=== PATIENT | female | born 1995 | race American Indian/Alaskan Native ===

== ENCOUNTER 2024-03-09 03:08 | Inpatient (IN) | payer MEDICAID, OTHER ==
[~2024-03-09] VITALS: Ht 154.9 cm; Wt 110.8 kg
[~2024-03-09 03:08] MED LIST: FERR-7 PO; PANT40TA2 PO
[2024-03-09 04:13] LABS: Urine Bacteria None Seen /hpf (None Seen)
[2024-03-09 04:16] LABS: Basophils # (auto) 0.1 10 ^3/uL (0-0.2); Basophils % (auto) 0.3 % (0.0-2.0); Eosinophils # (auto) 0 10 ^3/uL (0-0.8); Hematocrit 45.3 % (36.0-46.0); Hemoglobin 15.3 g/dL (12.2-16.2); Lymphocytes # (auto) 2.3 10 ^3/uL (0.4-5.4); Lymphocytes % (auto) 13.5 % (10.0-50.0); Mean Corpuscular Hemoglobin 29.6 pg (28.0-32.0); Mean Corpuscular Hgb Conc. 33.9 g/dL (32.0-36.0); Mean Corpuscular Volume 87.2 fL (80.0-100.0); Monocytes # (auto) 1.6 10 ^3/uL (0-1.3); Monocytes % (auto) 9.2 % (0.0-12.0); Neutrophils # (auto) 13.1 10 ^3/uL (1.6-8.6); Nucleated Red Blood Cells % 0.1 %; Red Blood Cells 5.19 10^6/uL (4.0-5.20); Red Cell Distribution Width 13.9 % (11.8-14.3); White Blood Cell 17.1 10^3/uL (4.4-10.8)
[2024-03-09 04:24] LABS: Chloride 99 mmol/L (98-107); Potassium 2.8 mmol/L (3.5-5.1); Sodium 138 mmol/L (136-145)
[2024-03-09 04:25] LABS: Anion Gap 16 (5-15); Carbon Dioxide 23 mmol/L (20-30)
[2024-03-09 04:26] LABS: Calcium 10.9 mg/dL (8.7-10.4)
[2024-03-09 04:31] LABS: Blood Urea Nitrogen 24 mg/dL (9-23); Glucose 172 mg/dL (74-106)
[2024-03-09 04:37] LABS: Urine Blood 3+ /uL (Negative); Urine Clarity Clear (Clear); Urine Color Yellow (Yellow); Urine Hyaline Cast MANY /lpf (0 - 2); Urine Mucus FEW (None Seen); Urine Protein, UAD 4+ (Negative); Urine Specific Gravity 1.041 (1.001-1.035); Urine Urobilinogen Normal (Negative); Urine WBC 5 /hpf (0 - 5); Urine pH 6.5 (5.0-9.0)
[2024-03-09] MEDS: SODIUM CHLORIDE 0.9% 1,000 ML IV ONE ×3 (04:37→11:48)
[2024-03-09] MEDS: PANTOPRAZOLE 40 MG/10 ML VIAL INJ IV ONE (04:43)
[2024-03-09] MEDS: ONDANSETRON HCL 4 MG/2 ML VIAL IV ONE (04:43)
[2024-03-09] MEDS ORDERED: DEXTROSE (50%) 50ML SYRG IV PRN ×2 (05:30→12:45)
[2024-03-09 06:56] LABS: Base Excess -1.8 mmol/L (-2.0-2.0)
[2024-03-09 07:30] VITALS: PULSE 81; RESP 12; O2SAT 97
[2024-03-09] MEDS: INSULIN DRIP 100 UNIT/100ML 100 ML IV SCH (07:45)
[2024-03-09] MEDS: ACCU-CHEK COMFORT CURVE STRIP VI SCH (07:45)
[2024-03-09] MEDS: INSULIN LANTUS (GLARGINE) 1 /0.01ml (100units/ml) SC ONE (10:58)
[2024-03-09] MEDS ORDERED: ACETAMINOPHEN 325 MG TAB PO PRN (11:45)
[2024-03-09] MEDS ORDERED: DOCUSATE SOD 100 MG CAP PO PRN (11:45)
[2024-03-09] MEDS ORDERED: NITROGLYCERIN 0.4 MG SL TAB SL PRN (11:45)
[2024-03-09] MEDS ORDERED: MORPHINE SULFATE INJ 2 MG/ml SYRG IV PRN (11:45)
[2024-03-09] MEDS: cefTRIAXone 1GM/50ML D5W 50 ML IV ONE (11:48)
[2024-03-09] MEDS: SODIUM CHLORIDE 0.9% 1,000 ML IV SCH (11:48)
[2024-03-09] MEDS: amLODIPine BESYLATE 5 MG TAB PO ONE (11:49)
[2024-03-09] MEDS: ONDANSETRON HCL 4 MG/2 ML VIAL IV PRN (11:49)
[2024-03-09 11:59] LABS: Basophils # (auto) 0.1 10 ^3/uL (0-0.2); Basophils % (auto) 0.4 % (0.0-2.0); Eosinophils # (auto) 0 10 ^3/uL (0-0.8); Hematocrit 42.1 % (36.0-46.0); Hemoglobin 14.1 g/dL (12.2-16.2); Lymphocytes # (auto) 1.9 10 ^3/uL (0.4-5.4); Lymphocytes % (auto) 11.1 % (10.0-50.0); Mean Corpuscular Hemoglobin 28.9 pg (28.0-32.0); Mean Corpuscular Hgb Conc. 33.3 g/dL (32.0-36.0); Mean Corpuscular Volume 86.7 fL (80.0-100.0); Monocytes # (auto) 1.6 10 ^3/uL (0-1.3); Monocytes % (auto) 9.6 % (0.0-12.0); Neutrophils # (auto) 13.4 10 ^3/uL (1.6-8.6); Neutrophils % (auto) 78.9 % (37.0-80.0); Nucleated Red Blood Cells % 0.1 %; Red Blood Cells 4.86 10^6/uL (4.0-5.20); Red Cell Distribution Width 14.2 % (11.8-14.3)
[2024-03-09 12:04] LABS: Base Excess -0.5 mmol/L (-2.0-2.0)
[2024-03-09 12:09] LABS: Alanine Aminotransferase 11 U/L (7-40); Albumin 4.9 g/dL (3.2-4.8); Alkaline Phosphatase 77 U/L (46-116); Anion Gap 13 (5-15); Aspartate Aminotransferase 16 U/L (13-40); BUN/Creatinine Ratio 25.6 (10.0-20.0); Blood Urea Nitrogen 22 mg/dL (9-23); Calcium 9.9 mg/dL (8.5-10.1); Carbon Dioxide 23 mmol/L (20-30); Chloride 105 mmol/L (98-107); Glucose 92 mg/dL (74-106); Potassium 2.8 mmol/L (3.5-5.1); Sodium 141 mmol/L (136-145)
[2024-03-09 12:10] LABS: Bilirubin, Total 1.9 mg/dL (0.2-1.0); Total Protein 8.1 g/dL (5.7-8.2)
[2024-03-09] MEDS ORDERED: ACCU-CHEK COMFORT CURVE STRIP VI SCH (17:00)
[2024-03-09] MEDS ORDERED: InsuLIN REG 1unit/0.01ml Soln (100units/ml) SC SCH ×2 (17:00→22:00)
[2024-03-09] MEDS: POTASSIUM CHL 20MEQ/100ML 100 ML IV SCH (17:55)
[2024-03-09 19:30] VITALS: PULSE 78; RESP 14; O2SAT 98
[2024-03-10] MEDS: HYDROcodone-ACET 5/325MG TAB PO PRN (00:13)
[2024-03-10 06:03] LABS: Basophils # (auto) 0.1 10 ^3/uL (0-0.2); Basophils % (auto) 0.6 % (0.0-2.0); Eosinophils # (auto) 0 10 ^3/uL (0-0.8); Eosinophils % (auto) 0.3 % (0.0-7.0); Hematocrit 37.3 % (36.0-46.0); Hemoglobin 12.3 g/dL (12.2-16.2); Lymphocytes # (auto) 2.7 10 ^3/uL (0.4-5.4); Mean Corpuscular Hemoglobin 29.2 pg (28.0-32.0); Mean Corpuscular Volume 88.5 fL (80.0-100.0); Monocytes # (auto) 1.3 10 ^3/uL (0-1.3); Monocytes % (auto) 11.5 % (0.0-12.0); Neutrophils # (auto) 7.6 10 ^3/uL (1.6-8.6); Neutrophils % (auto) 64.6 % (37.0-80.0); Nucleated Red Blood Cells % 0.1 %; Red Blood Cells 4.22 10^6/uL (4.0-5.20); Red Cell Distribution Width 13.9 % (11.8-14.3); White Blood Cell 11.7 10^3/uL (4.4-10.8)
[2024-03-10 06:22] LABS: Alanine Aminotransferase 10 U/L (7-40); Albumin 3.9 g/dL (3.2-4.8); Alkaline Phosphatase 61 U/L (46-116); Anion Gap 8 (5-15); Aspartate Aminotransferase 13 U/L (13-40); BUN/Creatinine Ratio 16.7 (10.0-20.0); Bilirubin, Total 1.4 mg/dL (0.2-1.0); Blood Urea Nitrogen 12 mg/dL (9-23); Calcium 9.4 mg/dL (8.7-10.4); Carbon Dioxide 27 mmol/L (20-30); Chloride 105 mmol/L (98-107); Glucose 79 mg/dL (74-106); Potassium 3.5 mmol/L (3.5-5.1); Sodium 140 mmol/L (136-145); Total Protein 6.7 g/dL (5.7-8.2)
[2024-03-10 08:30] VITALS: PULSE 74; RESP 16; O2SAT 97
[2024-03-10 09:30] VITALS: BP 157/96; PULSE 89; RESP 16; TEMP 98.7; O2SAT 98
[2024-03-10] MEDS: amLODIPine BESYLATE 5 MG TAB PO SCH (10:00)
[2024-03-10] MEDS ORDERED: INSULIN LANTUS (GLARGINE) 1 /0.01ml (100units/ml) SC SCH (10:00)
[2024-03-10] MEDS ORDERED: amLODIPine BESYLATE 5 MG TAB PO SCH (10:00)
[2024-03-10] MEDS: cefTRIAXone 1GM/50ML D5W 50 ML IV SCH (10:34)
[2024-03-10 18:33] LABS: Protein, Urine 45.3 mg/dL (0.0-11.9)
[2024-03-10 18:34] LABS: Amphetamine Screen, Urine Neg (NEGATIVE); Barbiturate Scree,Urine Neg (NEGATIVE); Benzodiazephine Screen, Urine Neg (NEGATIVE); Cocaine Screen, Urine Neg (NEGATIVE)
[2024-03-10 18:35] LABS: Cannabinoid Screen, Urine Pos (NEGATIVE); Creatinine, Urine 57.92 mg/dL (30.0-125.0); Opiate Scree,Urine Neg (NEGATIVE); Phencyclidine Screen, Urine Neg (NEGATIVE); Urine Protein/Creatinine Ratio 0.78
[2024-03-10 20:00] VITALS: PULSE 79
[2024-03-10 21:00] VITALS: BP 118/79; PULSE 85; RESP 22; TEMP 98.3; O2SAT 100
[2024-03-11] VITALS (8 sets, daily range): BP systolic 97–152; BP diastolic 65–108; PULSE 89–132; RESP 14–22; TEMP 98–99.7; O2SAT 0–100
[2024-03-11] MEDS: METOCLOPRAMIDE HCL 5MG/ml INJ 2ml VIAL IV PRN (03:03)
[2024-03-11 06:18] LABS: Anion Gap 11 (5-15); Calcium 9.2 mg/dL (8.7-10.4); Carbon Dioxide 24 mmol/L (20-30); Chloride 101 mmol/L (98-107); Potassium 2.8 mmol/L (3.5-5.1); Sodium 136 mmol/L (136-145)
[2024-03-11 06:24] LABS: BUN/Creatinine Ratio 14.9 (10.0-20.0); Blood Urea Nitrogen 10 mg/dL (9-23); Glucose 79 mg/dL (74-106)
[2024-03-11] MEDS: hydrALAZINE HCL 20 MG/ML VL IV PRN (09:46)
[2024-03-11] MEDS ORDERED: SODIUM CHLORIDE 0.9% 250 ML IV ONE (15:15)
[2024-03-11] MEDS: POTASSIUM CHL 20 Meq TABLET PO SCH (16:02)
[2024-03-11] MEDS: SODIUM CHLORIDE 0.9% 1,000 ML IV ONE (16:40)
[2024-03-12 01:00] VITALS: BP 123/93; PULSE 97; RESP 20; TEMP 98.7; O2SAT 97
[2024-03-12 05:00] VITALS: BP 133/88; PULSE 97; RESP 18; TEMP 98.4; O2SAT 96
[2024-03-12 08:00] VITALS: BP 117/73; PULSE 102; PULSE 95; RESP 20; TEMP 98.8; O2SAT 98
[2024-03-12 09:00] VITALS: BP 117/73; PULSE 95; RESP 20; TEMP 98.8; O2SAT 98
[2024-03-12 13:00] VITALS: BP 114/75; PULSE 118; RESP 20; TEMP 97.9; O2SAT 96
[2024-03-12] MEDS ORDERED: AML5T PO (13:28)
[2024-03-12 14:25] VITALS: BP 114/75; PULSE 118; RESP 20; TEMP 97.9; O2SAT 96
== END 2024-03-12 15:50 | disposition home health service (06) | DRG 420 ==
LOC: ER 03:08 → TELE 11:33 → TELE-E-ADS 11:33 → TELE-CENTR 03-10 18:34
PROVIDERS: ADMIT Nurse Practitioner Family; ATTEND Internal Medicine
DX: E11.10 Type 2 diabetes mellitus with ketoacidosis without coma (principal); N17.0 Acute kidney failure with tubular necrosis; E87.3 Alkalosis; D72.829 Elevated white blood cell count, unspecified; E86.1 Hypovolemia; E87.6 Hypokalemia; E86.0 Dehydration; I16.0 Hypertensive urgency; Z79.899 Other long term (current) drug therapy
CPT/HCPCS: 36415; 36600; 80048; 80053; 80307; 80320; 81001; 82010; 82570; 82805; 83036; 84156; 84443; 85025; 85379; 96365; 96375; C9113; G0378; J2405; J3480

== ENCOUNTER 2024-06-21 01:52 | Inpatient (IN) | payer MEDICAID, OTHER ==
[~2024-06-21] VITALS: Ht 154.9 cm; Wt 47.8 kg
[2024-06-21] VITALS (8 sets, daily range): BP systolic 153–171; BP diastolic 99–124; PULSE 76–95; RESP 12–20; TEMP 98.5–98.7; O2SAT 95–99
[~2024-06-21 01:52] MED LIST changes: +AML5T PO; -PANT40TA2 PO
[2024-06-21 02:16] LABS: Basophils # (auto) 0 10 ^3/uL (0-0.2); Basophils % (auto) 0.3 % (0.0-2.0); Eosinophils # (auto) 0 10 ^3/uL (0-0.8); Hematocrit 42.9 % (36.0-46.0); Hemoglobin 15.2 g/dL (12.2-16.2); Lymphocytes # (auto) 1.3 10 ^3/uL (0.4-5.4); Lymphocytes % (auto) 8.9 % (10.0-50.0); Mean Corpuscular Hgb Conc. 35.5 g/dL (32.0-36.0); Mean Corpuscular Volume 87.4 fL (80.0-100.0); Monocytes % (auto) 6.6 % (0.0-12.0); Neutrophils # (auto) 12.6 10 ^3/uL (1.6-8.6); Neutrophils % (auto) 84.2 % (37.0-80.0); Platelet Count (auto) 375 10^3/uL (140-450); Red Blood Cells 4.91 10^6/uL (4.0-5.20); Red Cell Distribution Width 13.6 % (11.8-14.3); White Blood Cell 14.9 10^3/uL (4.4-10.8)
[2024-06-21 02:36] LABS: Alanine Aminotransferase 18 U/L (7-40); Albumin 5.5 g/dL (3.2-4.8); Alkaline Phosphatase 68 U/L (46-116); Anion Gap 16 (5-15); Aspartate Aminotransferase 12 U/L (13-40); BUN/Creatinine Ratio 15.9 (10.0-20.0); Bilirubin, Total 1.2 mg/dL (0.2-1.0); Blood Urea Nitrogen 18 mg/dL (9-23); Carbon Dioxide 21 mmol/L (20-30); Chloride 105 mmol/L (98-107); Glucose 169 mg/dL (74-106); Potassium 2.6 mmol/L (3.5-5.1); Sodium 142 mmol/L (136-145); Total Protein 8.7 g/dL (5.7-8.2)
[2024-06-21] MEDS: SODIUM CHLORIDE 0.9% 1,000 ML IV ONE (03:13)
[2024-06-21] MEDS: METOCLOPRAMIDE HCL 10 MG TAB PO ONE (03:13)
[2024-06-21] MEDS: POTASSIUM CHL 20 Meq TABLET PO ONE (04:52)
[2024-06-21] MEDS: POTASSIUM CHL 20MEQ/100ML 100 ML IV SCH (04:52)
[2024-06-21] MEDS: LABETALOL HCL 20 MG/4 ML VL IV ONE (05:54)
[2024-06-21 06:53] LABS: Urine Bacteria FEW /hpf (None Seen); Urine Blood 2+ /uL (Negative); Urine Clarity Clear (Clear); Urine Color Colorless (Yellow); Urine Mucus FEW (None Seen); Urine Protein, UAD 1+ (Negative); Urine Urobilinogen Normal (Negative); Urine WBC 1 /hpf (0 - 5); Urine pH 7.5 (5.0-9.0)
[2024-06-21 07:06] LABS: Amphetamine Screen, Urine Neg (NEGATIVE); Benzodiazephine Screen, Urine Neg (NEGATIVE)
[2024-06-21 07:07] LABS: Barbiturate Scree,Urine Neg (NEGATIVE); Cannabinoid Screen, Urine Pos (NEGATIVE); Cocaine Screen, Urine Neg (NEGATIVE); Opiate Scree,Urine Neg (NEGATIVE); Phencyclidine Screen, Urine Neg (NEGATIVE)
[2024-06-21] MEDS ORDERED: FERR325T20 PO (07:43)
[2024-06-21] MEDS ORDERED: PANT40T PO (07:43)
[2024-06-21] MEDS ORDERED: AMLO1TAB22 PO (07:43)
[2024-06-21] MEDS ORDERED: MORPHINE SULFATE INJ 2 MG/ml SYRG IV PRN (07:45)
[2024-06-21] MEDS ORDERED: NITROGLYCERIN 0.4 MG SL TAB SL PRN (07:45)
[2024-06-21] MEDS ORDERED: ACETAMINOPHEN 325 MG TAB PO PRN (07:45)
[2024-06-21] MEDS: METOCLOPRAMIDE HCL 5MG/ml INJ 2ml VIAL IV SCH (08:15)
[2024-06-21] MEDS: SODIUM CHLORIDE 0.9% 1,000 ML IV SCH (08:15)
[2024-06-21] MEDS: PANTOPRAZOLE 40 MG TAB PO SCH (10:00)
[2024-06-21] MEDS: amLODIPine BESYLATE 5 MG TAB PO SCH (10:00)
[2024-06-21 12:40] LABS: Chloride 113 mmol/L (98-107); Potassium 3.2 mmol/L (3.5-5.1); Sodium 144 mmol/L (136-145)
[2024-06-21 12:41] LABS: Anion Gap 7 (5-15); Carbon Dioxide 24 mmol/L (20-30)
[2024-06-21 12:42] LABS: Calcium 8.8 mg/dL (8.7-10.4)
[2024-06-21 12:46] LABS: BUN/Creatinine Ratio 13.4 (10.0-20.0); Blood Urea Nitrogen 9 mg/dL (9-23); Glucose 94 mg/dL (74-106)
[2024-06-21 12:47] LABS: Magnesium 1.6 mg/dL (1.6-2.6)
[2024-06-21] MEDS: HEPARIN IN NS 1000Units/500mL 1,500 ML ONE (15:10)
[2024-06-21] MEDS: IODIXANOL 320MG/ML 100ML BTL IV ONE (15:10)
[2024-06-21] MEDS: HEPARIN SODIUM (PORCINE) 5000 UNITS/ML 1ML VIAL ONE (15:31)
[2024-06-21] MEDS: VERAPAMIL 2.5MG/ML INJ 2ML VIAL IV ONE (15:31)
[2024-06-21] MEDS: ANGIOMAX 250 MG VIAL IV ONE (15:31)
[2024-06-21] MEDS: SODIUM CHL 0.9% 0 ML ONE (15:32)
[2024-06-21] MEDS: fentaNYL CITRATE 100 MCG/2 ML VL ONE (15:32)
[2024-06-21] MEDS: MIDAZOLAM HCL 2MG/2ML 2ml VIAL (1mg/ml) ONE (15:32)
[2024-06-21] MEDS: LIDOCAINE 2%HCL (LOCAL ANESTH.) INJ 20ML MDV ONE (15:32)
[2024-06-21] MEDS: hydrALAZINE HCL 20 MG/ML VL ONE (16:15)
[2024-06-21] MEDS: amLODIPine BESYLATE 5 MG TAB PO ONE (17:01)
[2024-06-21 18:27] LABS: INR 1.17 (0.9-1.15); Partial Thromboplastin Time 24.6 SEC (24.5-34.5); Prothrombin Time 12.3 sec (9.3-11.8)
[2024-06-21] MEDS: hydrALAZINE HCL 20 MG/ML VL IV PRN (21:57)
[2024-06-21] MEDS: ONDANSETRON HCL 4 MG/2 ML VIAL IV PRN (21:58)
[2024-06-21] MEDS ORDERED: MELATONIN 5 MG TAB PO ONE (22:00)
[2024-06-22 01:00] VITALS: BP 150/93; PULSE 100; RESP 16; TEMP 99.6; O2SAT 98
[2024-06-22 05:00] VITALS: BP 149/99; PULSE 99; RESP 17; TEMP 99.1; O2SAT 99
[2024-06-22 06:17] LABS: Basophils # (auto) 0 10 ^3/uL (0-0.2); Basophils % (auto) 0.4 % (0.0-2.0); Eosinophils # (auto) 0 10 ^3/uL (0-0.8); Hematocrit 40.3 % (36.0-46.0); Hemoglobin 13.8 g/dL (12.2-16.2); Lymphocytes # (auto) 1.5 10 ^3/uL (0.4-5.4); Lymphocytes % (auto) 13.3 % (10.0-50.0); Mean Corpuscular Hemoglobin 30.1 pg (28.0-32.0); Mean Corpuscular Hgb Conc. 34.4 g/dL (32.0-36.0); Mean Corpuscular Volume 87.6 fL (80.0-100.0); Monocytes # (auto) 1.1 10 ^3/uL (0-1.3); Monocytes % (auto) 9.9 % (0.0-12.0); Neutrophils # (auto) 8.4 10 ^3/uL (1.6-8.6); Neutrophils % (auto) 76.4 % (37.0-80.0); Nucleated Red Blood Cells % 0.1 %; Platelet Count (auto) 315 10^3/uL (140-450); Red Cell Distribution Width 13.7 % (11.8-14.3); White Blood Cell 10.9 10^3/uL (4.4-10.8)
[2024-06-22 06:18] LABS: Alanine Aminotransferase 11 U/L (7-40); Albumin 4.6 g/dL (3.2-4.8); Alkaline Phosphatase 65 U/L (46-116); Anion Gap 14 (5-15); Aspartate Aminotransferase 16 U/L (13-40); BUN/Creatinine Ratio 10.8 (10.0-20.0); Blood Urea Nitrogen 8 mg/dL (9-23); Calcium 9.9 mg/dL (8.7-10.4); Carbon Dioxide 22 mmol/L (20-30); Chloride 103 mmol/L (98-107); Glucose 108 mg/dL (74-106); Sodium 139 mmol/L (136-145)
[2024-06-22 06:19] LABS: Bilirubin, Total 1.5 mg/dL (0.2-1.0); Total Protein 7.7 g/dL (5.7-8.2)
[2024-06-22 06:28] LABS: Potassium 2.5 mmol/L (3.5-5.1)
[2024-06-22 08:00] VITALS: PULSE 90; PULSE 98; RESP 17; O2SAT 99
[2024-06-22] MEDS ORDERED: POTASSIUM CHLORIDE 40 MEQ, LIDOCAINE 1% (LOCAL ANESTH.) 4 ML in SODIUM CHL 0.9% 250 ML IV ONE (08:15)
[2024-06-22] MEDS ORDERED: POTASSIUM CHL 20 Meq TABLET PO ONE (08:15)
[2024-06-22 08:35] LABS: Base Excess -1.5 mmol/L (-2.0-3.0)
[2024-06-22] MEDS: POTASSIUM EFFERVESENT TAB 25 MEQ PO ONE (08:52)
[2024-06-22 09:22] VITALS: BP 125/97; PULSE 109; RESP 20; TEMP 97.3; O2SAT 97
[2024-06-22] MEDS ORDERED: amLODIPine BESYLATE 5 MG TAB PO SCH ×2 (10:00)
== END 2024-06-22 09:30 | disposition left against medical advice (07) | DRG 192 ==
LOC: ER 01:52 → TELE 07:43 → TELE-EAST 17:42
PROVIDERS: ADMIT Nurse Practitioner; ATTEND Nurse Practitioner
PROC: 4A023N7 Measurement of Cardiac Sampling and Pressure, Left Heart, Percutaneous Approach (ICD-10-PCS; principal; 2024-06-21)
PROC: B211YZZ Fluoroscopy of Multiple Coronary Arteries using Other Contrast (ICD-10-PCS; 2024-06-21)
DX: I16.0 Hypertensive urgency (principal); N17.0 Acute kidney failure with tubular necrosis; I21.A1 Myocardial infarction type 2; E83.52 Hypercalcemia; E87.6 Hypokalemia; I10 Essential (primary) hypertension; N92.1 Excessive and frequent menstruation with irregular cycle; R11.2 Nausea with vomiting, unspecified; Z53.29 Procedure and treatment not carried out because of patient's decision for other reasons; F12.90 Cannabis use, unspecified, uncomplicated
CPT/HCPCS: 36415; 36600; 71045; 76856; 80048; 80053; 80307; 80320; 81001; 82805; 83735; 83880; 84484; 84702; 85025; 85379; 85610; 85730; 93005; 93306; 93458; 96361; 96365; 96366; 96375; 99152; 99291; C1894; G0378; J2001; J2250; J2405; J3480; Q9967